=== PATIENT | female | born 1935 | race Caucasian/White ===

== ENCOUNTER 2020-09-23 20:49 | Emergency (ER) | payer MEDICARE, BC ==
[~2020-09-23] VITALS: Ht 152.4 cm; Wt 61.2 kg
[2020-09-23] MEDS ORDERED: ACET-2154 PO ×2 (21:03)
[2020-09-23] MEDS ORDERED: ATOR10TA PO (21:03)
[2020-09-23] MEDS ORDERED: MAGN400O6 PO (21:03)
[2020-09-23] MEDS ORDERED: CITA20TA16 PO (21:03)
[2020-09-23] MEDS ORDERED: MEMA10TA PO (21:03)
[2020-09-23] MEDS ORDERED: ENOX40DI SUBCUT (21:03)
[2020-09-23] MEDS ORDERED: QUET25TA PO (21:03)
[2020-09-23] MEDS ORDERED: ATEN25TA PO (21:03)
[2020-09-23] MEDS ORDERED: MULT-1119 PO (21:03)
[2020-09-23 21:28] LABS: MEAN CORPUSCULAR HEMOGLOBIN 29.4 uug (24.7-32.8); PLATELET COUNT (AUTO) 279 K/uL (179-408)
[2020-09-23 21:33] LABS: CARBON DIOXIDE 29 mmol/L (21-32); CHLORIDE 103 mmol/L (98-107); CREATININE 0.7 mg/dL (0.6-1.3); GLUCOSE 145 mg/dL (74-106); POTASSIUM 3.4 mmol/L (3.5-5.1); UREA NITROGEN, BLOOD 15 mg/dL (7-18)
--- NOTE | 2020-09-23 21:45 | NUR ---
Pt back to ER from Radiology.
[2020-09-23 22:28] LABS: *BILIRUBIN,URIN NEGATIVE (NEGATIVE); *BLOOD, URINE 2+ (NEGATIVE); *CLARITY,URINE CLOUDY (CLEAR); *COLOR,URINE YELLOW (YELLOW); *KETONES,URINE NEGATIVE (NEGATIVE); *UROBILINOGEN,URINE 0.2 E.U./dl (NORMAL); LEUKOCYTE ESTERASE ,URINE 3+ (NEGATIVE); NITRITE, URINE POSITIVE (NEGATIVE); PH,URINE 6.5 (5.0-8.0); UGLUCOSE TRACE (NEGATIVE)
[2020-09-23 22:37] LABS: BACTERIA,URINE MANY /HPF (NONE SEEN); RBC,URINE NONE SEEN /HPF (0-3); SQUAMOUS EPITHELIAL CELL,UR FEW /HPF (NONE SEEN); WBC,URINE TNTC /HPF (0-3)
[2020-09-23 22:38] LABS: CALCIUM OXALATE CRYSTALS,UR FEW /HPF (NONE SEEN)
[2020-09-23] MEDS ORDERED: CEFTRIAXONE 1 G in IV DEXTROSE 5% 50 ML IV ONE (22:45)
[2020-09-23] MEDS ORDERED: POTASSIUM BICARBONATE/CIT AC 25 MEQ TABLET.EFF PO ONE (22:45)
[2020-09-23] MEDS ORDERED: CEFTRIAXONE /D5W 50ML IVPB **ER PYXIS IV ONE (23:07)
[2020-09-23] MEDS ORDERED: POTASSIUM BICARBONATE/CIT AC 25 MEQ TABLET.EFF ONE (23:07)
[2020-09-24] MEDS ORDERED: OXYC-128 PO (00:27)
[2020-09-24] MEDS ORDERED: SULF1TAB48 PO (00:27)
--- NOTE | 2020-09-24 01:53 | NUR ---
Patient discharged to home in stable condition. Written and verbal after care instructions given. Patient verbalizes understanding of instructions. Stressed follow up or return to ER for worsening s/s. Patients daughter adamant about wanting to drive her mother back to her care facility so as to not wait for transportation services. VSS. Taken out via wheelchair. All belongings with patient.
[2020-09-24 02:03] VITALS: BP 122/72
== END 2020-09-24 01:00 ==
LOC: ER 20:52
DX: S22.080A Wedge compression fracture of T11-T12 vertebra, initial encounter for closed fracture (principal); W17.89XA Other fall from one level to another, initial encounter; Y92.099 Unspecified place in other non-institutional residence as the place of occurrence of the external cause; F03.90 Unspecified dementia, unspecified severity, without behavioral disturbance, psychotic disturbance, mood disturbance, and anxiety; Z85.3 Personal history of malignant neoplasm of breast; E78.00 Pure hypercholesterolemia, unspecified; Z79.899 Other long term (current) drug therapy; N39.0 Urinary tract infection, site not specified
CPT/HCPCS: 36415; 72072; 72100; 72170; 80048; 81001; 85025; 87086; 96365; 99284; J0696; A4663

== ENCOUNTER 2022-10-23 10:46 | Inpatient (IN) | payer MEDICARE, BC ==
[~2022-10-23] VITALS: Ht 152.4 cm; Wt 48.5 kg
[~2022-10-23 10:46] MED LIST: ACET-2154 PO; ATEN25TA PO; ATOR10TA PO; CITA20TA16 PO; ENOX40DI SUBCUT; MAGN400O6 PO; MEMA10TA PO; MULT-1119 PO; OXYC-128 PO; QUET25TA PO; SULF1TAB48 PO
[2022-10-23] MEDS ORDERED: OXYC-117 PO ×2 (11:21)
[2022-10-23] MEDS ORDERED: ACET-2030 PO (11:21)
[2022-10-23] MEDS ORDERED: TRAM50TA2 PO (11:21)
[2022-10-23] MEDS ORDERED: QUET25TA PO (11:21)
[2022-10-23 11:27] LABS: BASOPHILS % (AUTO) 0.3 % (0.0-2.0); HEMATOCRIT 33.7 % (31.2-41.9); HEMOGLOBIN 11.6 g/dL (10.9-14.3); LYMPHOCYTES # (AUTO) 1.6 K/uL (0.8-4.8); LYMPHOCYTES % (AUTO) 18.1 % (20.5-51.5); MEAN CORPUSCULAR HEMOGLOBIN 29.1 uug (24.7-32.8); MEAN CORPUSCULAR HGB CONC 34 g/dL (32.3-35.6); MEAN CORPUSCULAR VOLUME 84.7 fL (75.5-95.3); MONOCYTES # (AUTO) 0.5 K/uL (0.1-1.30); MONOCYTES % (AUTO) 5.6 % (0.0-11.0); NEUTROPHILS # (AUTO) 6.7 K/uL (1.8-8.9); PLATELET COUNT (AUTO) 219 K/uL (179-408); RED BLOOD CELL COUNT(AUTO) 3.98 MIL/uL (3.63-4.92); RED CELL DISTRIBUTION WIDTH 14.7 % (12.3-17.7); WHITE BLOOD COUNT (AUTO) 8.8 K/uL (3.8-11.8)
[2022-10-23 11:42] LABS: CALCIUM 7.8 mg/dL (8.5-10.1); CARBON DIOXIDE 28 mmol/L (21-32); CHLORIDE 101 mmol/L (98-107); CREATININE 0.6 mg/dL (0.6-1.3); GLUCOSE 148 mg/dL (74-106); SODIUM SERUM 139 mmol/L (136-145); UREA NITROGEN, BLOOD 11 mg/dL (7-18)
[2022-10-23 11:43] LABS: DIFFERENTIAL COMMENT 1
[2022-10-23] MEDS ORDERED: ACETAMINOPHEN 650 MG SUPP.RECT RC ONE ×2 (11:45)
[2022-10-23 11:54] LABS: ALANINE AMINOTRANSFERASE 14 U/L (14-59); ALBUMIN 2.6 g/dL (3.4-5.0); ALKALINE PHOSPHATASE 71 U/L (50-136); ASPARTATE AMINOTRANSFERASE 16 U/L (15-37); BILIRUBIN,DIRECT 0.2 mg/dL (0.0-0.2); BILIRUBIN,TOTAL 0.8 mg/dL (0.2-1.0); NT-PRO BNP 4118 pg/mL (0-125); TOTAL PROTEIN, SERUM 6.6 g/dL (6.4-8.2)
[2022-10-23] MEDS ORDERED: FUROSEMIDE 20 MG/2 ML VIAL ONE (14:59)
[2022-10-23] MEDS ORDERED: FUROSEMIDE 20 MG/2 ML VIAL IV ONE (15:00)
[2022-10-23 15:54] LABS: *BILIRUBIN,URIN NEGATIVE (NEGATIVE); *BLOOD, URINE 2+ (NEGATIVE); *COLOR,URINE YELLOW (YELLOW); *KETONES,URINE 1+ (NEGATIVE); *PROTEIN,URINE 2+ (NEGATIVE); *UROBILINOGEN,URINE 0.2 E.U./dl (NORMAL); LEUKOCYTE ESTERASE ,URINE 1+ (NEGATIVE); NITRITE, URINE NEGATIVE (NEGATIVE); UGLUCOSE NEGATIVE (NEGATIVE)
[2022-10-23 15:57] LABS: *CLARITY,URINE HAZY (CLEAR)
[2022-10-23 16:20] VITALS: O2SAT 96
[2022-10-23 16:26] LABS: BACTERIA,URINE MODERATE /HPF (NONE SEEN); SQUAMOUS EPITHELIAL CELL,UR FEW /HPF (NONE SEEN); WBC,URINE 20-50 /HPF (0-3)
[2022-10-23 17:45] VITALS: BP 119/48; TEMP 97.8; O2SAT 99
[2022-10-23] MEDS ORDERED: MAGNESIUM HYDROXIDE 30 ML LIQUID UDC PO PRN ×2 (19:15)
[2022-10-23] MEDS ORDERED: QUETIAPINE FUMARATE 25 MG TABLET PO PRN (19:15)
[2022-10-23] MEDS ORDERED: ZOLPIDEM 5 MG TABLET PO PRN (19:15)
[2022-10-23] MEDS ORDERED: REMEDY ESSENTIAL ZINC PASTE 113 GM TP PRN (19:15)
[2022-10-23] MEDS ORDERED: ONDANSETRON 4 MG/2 ML VIAL IV PRN (19:15)
[2022-10-23] MEDS ORDERED: CEFEPIME HCL 1 G VIAL ONE ×2 (20:27→20:44)
[2022-10-23] MEDS ORDERED: METRONIDAZOLE 500 MG TABLET ONE ×2 (20:28→20:29)
[2022-10-23] MEDS ORDERED: levoFLOXacin 500 MG TABLET ONE (20:28)
[2022-10-23] MEDS: ENOXAPARIN SODIUM 40 MG/0.4 ML DISP.SYRIN SQ SCH (20:47)
[2022-10-23] MEDS: CEFEPIME HCL 2 G in IV DEXTROSE 5% 100 ML IV SCH (21:06)
[2022-10-23 21:48] VITALS: BP 116/60; TEMP 98.2; O2SAT 99
[2022-10-23 22:00] VITALS: O2SAT 97
[2022-10-23] MEDS ORDERED: CEFEPIME HCL 2 G in IV DEXTROSE 5% 100 ML IV SCH (22:00)
[2022-10-24] MEDS: POTASSIUM CHLORIDE 50 ML IV SCH ×2 (00:04→01:10)
[2022-10-24 05:53] VITALS: BP 120/68; TEMP 98.2; O2SAT 99
[2022-10-24 08:00] VITALS: BP 138/69; TEMP 97; O2SAT 96
[2022-10-24 08:25] LABS: BASOPHILS % (AUTO) 0.3 % (0.0-2.0); EOSINOPHILS % (AUTO) 0.1 % (0.0-7.0); HEMOGLOBIN 12.2 g/dL (10.9-14.3); LYMPHOCYTES # (AUTO) 1.6 K/uL (0.8-4.8); LYMPHOCYTES % (AUTO) 28.9 % (20.5-51.5); MEAN CORPUSCULAR HEMOGLOBIN 29.2 uug (24.7-32.8); MEAN CORPUSCULAR HGB CONC 34 g/dL (32.3-35.6); MEAN CORPUSCULAR VOLUME 86.1 fL (75.5-95.3); MONOCYTES # (AUTO) 0.4 K/uL (0.1-1.30); MONOCYTES % (AUTO) 6.6 % (0.0-11.0); NEUTROPHILS # (AUTO) 3.6 K/uL (1.8-8.9); NEUTROPHILS % (AUTO) 64.1 % (38.5-71.5); PLATELET COUNT (AUTO) 225 K/uL (179-408); RED BLOOD CELL COUNT(AUTO) 4.18 MIL/uL (3.63-4.92); RED CELL DISTRIBUTION WIDTH 14.7 % (12.3-17.7); WHITE BLOOD COUNT (AUTO) 5.5 K/uL (3.8-11.8)
[2022-10-24 08:30] LABS: DIFFERENTIAL COMMENT 1
[2022-10-24 08:39] LABS: ALANINE AMINOTRANSFERASE 14 U/L (14-59); ALBUMIN 2.5 g/dL (3.4-5.0); ALKALINE PHOSPHATASE 71 U/L (50-136); ASPARTATE AMINOTRANSFERASE 28 U/L (15-37); BILIRUBIN,DIRECT 0.2 mg/dL (0.0-0.2); BILIRUBIN,TOTAL 0.6 mg/dL (0.2-1.0); CALCIUM 8.2 mg/dL (8.5-10.1); CARBON DIOXIDE 30 mmol/L (21-32); CHLORIDE 103 mmol/L (98-107); CHOLESTEROL 144 mg/dL (<200); CREATININE 0.7 mg/dL (0.6-1.3); GLUCOSE 93 mg/dL (74-106); HDL CHOLESTEROL 45 mg/dL (40-60); MAGNESIUM 2.1 mg/dL (1.8-2.4); PHOSPHOROUS 3.1 mg/dL (2.5-4.9); POTASSIUM 3.4 mmol/L (3.5-5.1); SODIUM SERUM 141 mmol/L (136-145); TOTAL PROTEIN, SERUM 6.4 g/dL (6.4-8.2); TRIGLYCERIDES 102 MG/DL (30-150); UREA NITROGEN, BLOOD 15 mg/dL (7-18)
[2022-10-24] MEDS ORDERED: POTASSIUM CHLORIDE 20 MEQ TAB.PRT.SR PO ONE (08:45)
[2022-10-24] MEDS: CEFEPIME HCL 2 G in IV DEXTROSE 5% 100 ML IV SCH ×2 (09:04→20:28)
[2022-10-24] MEDS: PANTOPRAZOLE SODIUM 40 MG VIAL IV SCH (10:26)
[2022-10-24] MEDS: ATENOLOL 25 MG TABLET PO SCH (10:27)
[2022-10-24] MEDS: DEXAMETHASONE SOD PHOSPHATE 10 MG INJ IV SCH (10:28)
[2022-10-24] MEDS: QUETIAPINE FUMARATE 25 MG TABLET PO SCH (10:28)
[2022-10-24] MEDS: CITALOPRAM 20 MG TABLET PO SCH (10:33)
[2022-10-24 10:42] LABS: THYROID STIMULATING HORMONE 1.007 mIU/mL (0.358-3.740)
[2022-10-24 12:00] VITALS: BP 112/61; TEMP 98.5; O2SAT 94
[2022-10-24 16:00] VITALS: BP 117/45; TEMP 98; O2SAT 98
[2022-10-24] MEDS ORDERED: REMDESIVIR (CHARGED) 200 MG in IV NORMAL SALINE 210 ML IV ONE (18:30)
[2022-10-24] MEDS: ATORVASTATIN 10 MG TABLET PO SCH (18:42)
[2022-10-24 20:00] VITALS: BP 97/53; TEMP 98.2; O2SAT 95
[2022-10-24] MEDS: ENOXAPARIN SODIUM 40 MG/0.4 ML DISP.SYRIN SQ SCH (20:50)
[2022-10-25] VITALS (7 sets, daily range): BP systolic 110–144; BP diastolic 47–74; TEMP 98–98.9; O2SAT 96–98
[2022-10-25 06:45] LABS: HEMATOCRIT 36.5 % (31.2-41.9); HEMOGLOBIN 12.3 g/dL (10.9-14.3); LYMPHOCYTES # (AUTO) 0.9 K/uL (0.8-4.8); LYMPHOCYTES % (AUTO) 27.5 % (20.5-51.5); MEAN CORPUSCULAR HEMOGLOBIN 28.8 uug (24.7-32.8); MEAN CORPUSCULAR HGB CONC 34 g/dL (32.3-35.6); MEAN CORPUSCULAR VOLUME 85.3 fL (75.5-95.3); MONOCYTES # (AUTO) 0.2 K/uL (0.1-1.30); MONOCYTES % (AUTO) 6.1 % (0.0-11.0); NEUTROPHILS # (AUTO) 2.1 K/uL (1.8-8.9); NEUTROPHILS % (AUTO) 66.4 % (38.5-71.5); PLATELET COUNT (AUTO) 270 K/uL (179-408); RED BLOOD CELL COUNT(AUTO) 4.28 MIL/uL (3.63-4.92); RED CELL DISTRIBUTION WIDTH 14.1 % (12.3-17.7); WHITE BLOOD COUNT (AUTO) 3.2 K/uL (3.8-11.8)
[2022-10-25 07:06] LABS: DIFFERENTIAL COMMENT 1
[2022-10-25 07:08] LABS: ALANINE AMINOTRANSFERASE 15 U/L (14-59); ALBUMIN 2.4 g/dL (3.4-5.0); ALKALINE PHOSPHATASE 68 U/L (50-136); ASPARTATE AMINOTRANSFERASE 19 U/L (15-37); BILIRUBIN,DIRECT 0.1 mg/dL (0.0-0.2); BILIRUBIN,TOTAL 0.4 mg/dL (0.2-1.0); CALCIUM 9.6 mg/dL (8.5-10.1); CARBON DIOXIDE 26 mmol/L (21-32); CHLORIDE 105 mmol/L (98-107); CREATININE 0.7 mg/dL (0.6-1.3); GLUCOSE 204 mg/dL (74-106); MAGNESIUM 2.2 mg/dL (1.8-2.4); PHOSPHOROUS 2.6 mg/dL (2.5-4.9); POTASSIUM 4.4 mmol/L (3.5-5.1); SODIUM SERUM 141 mmol/L (136-145); TOTAL PROTEIN, SERUM 6.6 g/dL (6.4-8.2); UREA NITROGEN, BLOOD 18 mg/dL (7-18)
[2022-10-25] MEDS: ATENOLOL 25 MG TABLET PO SCH (09:53)
[2022-10-25] MEDS: QUETIAPINE FUMARATE 25 MG TABLET PO SCH (09:54)
[2022-10-25] MEDS: CITALOPRAM 20 MG TABLET PO SCH (09:54)
[2022-10-25] MEDS: DEXAMETHASONE SOD PHOSPHATE 10 MG INJ IV SCH (09:56)
[2022-10-25] MEDS: CEFEPIME HCL 2 G in IV DEXTROSE 5% 100 ML IV SCH ×2 (09:56→21:44)
[2022-10-25] MEDS: PANTOPRAZOLE SODIUM 40 MG VIAL IV SCH (12:11)
[2022-10-25] MEDS: GLUCERNA SHAKE 237 ML CAN PO SCH (17:00)
[2022-10-25] MEDS: ATORVASTATIN 10 MG TABLET PO SCH (17:57)
[2022-10-25] MEDS: REMDESIVIR (CHARGED) 100 MG in IV NORMAL SALINE 100 ML IV SCH (17:59)
[2022-10-25] MEDS: ENOXAPARIN SODIUM 40 MG/0.4 ML DISP.SYRIN SQ SCH (22:16)
[2022-10-26] VITALS (8 sets, daily range): BP systolic 119–133; BP diastolic 55–62; TEMP 97.8–98.5; O2SAT 96–99
[2022-10-26] MEDS: PANTOPRAZOLE SODIUM 40 MG TABLET.DR PO SCH (06:30)
[2022-10-26 07:31] LABS: BASOPHILS % (AUTO) 0.1 % (0.0-2.0); HEMATOCRIT 36.6 % (31.2-41.9); HEMOGLOBIN 12.2 g/dL (10.9-14.3); LYMPHOCYTES # (AUTO) 1.1 K/uL (0.8-4.8); LYMPHOCYTES % (AUTO) 29.1 % (20.5-51.5); MEAN CORPUSCULAR HEMOGLOBIN 28.6 uug (24.7-32.8); MEAN CORPUSCULAR HGB CONC 33 g/dL (32.3-35.6); MEAN CORPUSCULAR VOLUME 85.5 fL (75.5-95.3); MONOCYTES # (AUTO) 0.3 K/uL (0.1-1.30); MONOCYTES % (AUTO) 8.9 % (0.0-11.0); NEUTROPHILS # (AUTO) 2.3 K/uL (1.8-8.9); NEUTROPHILS % (AUTO) 61.9 % (38.5-71.5); PLATELET COUNT (AUTO) 299 K/uL (179-408); RED BLOOD CELL COUNT(AUTO) 4.29 MIL/uL (3.63-4.92); RED CELL DISTRIBUTION WIDTH 14.5 % (12.3-17.7); WHITE BLOOD COUNT (AUTO) 3.6 K/uL (3.8-11.8)
[2022-10-26 07:43] LABS: DIFFERENTIAL COMMENT 1
[2022-10-26 08:33] LABS: ALBUMIN 2.6 g/dL (3.4-5.0); BILIRUBIN,DIRECT 0.1 mg/dL (0.0-0.2); BILIRUBIN,TOTAL 0.4 mg/dL (0.2-1.0); CALCIUM 8.9 mg/dL (8.5-10.1); CREATININE 0.7 mg/dL (0.6-1.3); POTASSIUM 4.1 mmol/L (3.5-5.1); TOTAL PROTEIN, SERUM 6.6 g/dL (6.4-8.2)
[2022-10-26] MEDS: CEFEPIME HCL 2 G in IV DEXTROSE 5% 100 ML IV SCH ×2 (08:54→21:05)
[2022-10-26] MEDS: GLUCERNA SHAKE 237 ML CAN PO SCH ×3 (08:54→17:30)
[2022-10-26] MEDS: DEXAMETHASONE SOD PHOSPHATE 10 MG INJ IV SCH (08:58)
[2022-10-26] MEDS: CITALOPRAM 20 MG TABLET PO SCH (08:58)
[2022-10-26] MEDS: QUETIAPINE FUMARATE 25 MG TABLET PO SCH (08:59)
[2022-10-26] MEDS: ATENOLOL 25 MG TABLET PO SCH (10:41)
[2022-10-26] MEDS: REMDESIVIR (CHARGED) 100 MG in IV NORMAL SALINE 100 ML IV SCH (18:20)
[2022-10-26] MEDS: ATORVASTATIN 10 MG TABLET PO SCH (18:21)
[2022-10-26] MEDS: ENOXAPARIN SODIUM 40 MG/0.4 ML DISP.SYRIN SQ SCH (21:11)
[2022-10-27] VITALS (7 sets, daily range): BP systolic 116–137; BP diastolic 44–65; TEMP 97.5–98.6; O2SAT 96–99
[2022-10-27] MEDS: PANTOPRAZOLE SODIUM 40 MG TABLET.DR PO SCH (06:14)
[2022-10-27] MEDS: ACETAMINOPHEN 325 MG TABLET PO PRN (06:36)
[2022-10-27 07:00] LABS: BASOPHILS % (AUTO) 0.1 % (0.0-2.0); HEMATOCRIT 36.9 % (31.2-41.9); HEMOGLOBIN 12.5 g/dL (10.9-14.3); LYMPHOCYTES # (AUTO) 1.8 K/uL (0.8-4.8); MEAN CORPUSCULAR HEMOGLOBIN 28.7 uug (24.7-32.8); MEAN CORPUSCULAR HGB CONC 34 g/dL (32.3-35.6); MEAN CORPUSCULAR VOLUME 84.6 fL (75.5-95.3); MONOCYTES # (AUTO) 0.5 K/uL (0.1-1.30); MONOCYTES % (AUTO) 8.2 % (0.0-11.0); NEUTROPHILS # (AUTO) 4.1 K/uL (1.8-8.9); NEUTROPHILS % (AUTO) 63.7 % (38.5-71.5); PLATELET COUNT (AUTO) 318 K/uL (179-408); RED BLOOD CELL COUNT(AUTO) 4.37 MIL/uL (3.63-4.92); WHITE BLOOD COUNT (AUTO) 6.5 K/uL (3.8-11.8)
[2022-10-27 07:05] LABS: DIFFERENTIAL COMMENT 1
[2022-10-27 07:10] LABS: ALBUMIN 2.6 g/dL (3.4-5.0); BILIRUBIN,DIRECT 0.1 mg/dL (0.0-0.2); BILIRUBIN,TOTAL 0.4 mg/dL (0.2-1.0); CALCIUM 8.9 mg/dL (8.5-10.1); CREATININE 0.7 mg/dL (0.6-1.3); TOTAL PROTEIN, SERUM 6.5 g/dL (6.4-8.2)
[2022-10-27 07:11] LABS: C-REACTIVE PROTEIN 4.4 mg/dL (0.0-0.9); MAGNESIUM 2.2 mg/dL (1.8-2.4); PHOSPHOROUS 2.2 mg/dL (2.5-4.9)
[2022-10-27] MEDS: CEFEPIME HCL 2 G in IV DEXTROSE 5% 100 ML IV SCH ×2 (07:42→21:00)
[2022-10-27] MEDS: GLUCERNA SHAKE 237 ML CAN PO SCH ×3 (08:09→17:11)
[2022-10-27] MEDS: DEXAMETHASONE SOD PHOSPHATE 10 MG INJ IV SCH (08:10)
[2022-10-27] MEDS: CITALOPRAM 20 MG TABLET PO SCH (08:10)
[2022-10-27] MEDS: QUETIAPINE FUMARATE 25 MG TABLET PO SCH (08:11)
[2022-10-27] MEDS: ATENOLOL 25 MG TABLET PO SCH (08:11)
[2022-10-27] MEDS ORDERED: NEUTRA PHOS PACKET PO ONE (15:30)
[2022-10-27] MEDS: ATORVASTATIN 10 MG TABLET PO SCH (17:11)
[2022-10-27] MEDS: REMDESIVIR (CHARGED) 100 MG in IV NORMAL SALINE 100 ML IV SCH ×2 (17:21→18:38)
[2022-10-27] MEDS: ENOXAPARIN SODIUM 40 MG/0.4 ML DISP.SYRIN SQ SCH (21:21)
[2022-10-28] MEDS: PANTOPRAZOLE SODIUM 40 MG TABLET.DR PO SCH (07:01)
[2022-10-28 07:11] LABS: HEMATOCRIT 37.6 % (31.2-41.9); HEMOGLOBIN 12.6 g/dL (10.9-14.3); LYMPHOCYTES # (AUTO) 1.8 K/uL (0.8-4.8); MEAN CORPUSCULAR HEMOGLOBIN 28.3 uug (24.7-32.8); MEAN CORPUSCULAR HGB CONC 34 g/dL (32.3-35.6); MEAN CORPUSCULAR VOLUME 84.4 fL (75.5-95.3); MONOCYTES # (AUTO) 0.3 K/uL (0.1-1.30); MONOCYTES % (AUTO) 6.8 % (0.0-11.0); NEUTROPHILS # (AUTO) 2.9 K/uL (1.8-8.9); NEUTROPHILS % (AUTO) 57.2 % (38.5-71.5); PLATELET COUNT (AUTO) 278 K/uL (179-408); RED BLOOD CELL COUNT(AUTO) 4.45 MIL/uL (3.63-4.92); RED CELL DISTRIBUTION WIDTH 14.5 % (12.3-17.7)
[2022-10-28 07:12] VITALS: BP 128/50; TEMP 97.8; O2SAT 96
[2022-10-28 07:21] LABS: ALANINE AMINOTRANSFERASE 18 U/L (14-59); ALBUMIN 2.6 g/dL (3.4-5.0); ALKALINE PHOSPHATASE 70 U/L (50-136); ASPARTATE AMINOTRANSFERASE 20 U/L (15-37); BILIRUBIN,DIRECT 0.1 mg/dL (0.0-0.2); BILIRUBIN,TOTAL 0.4 mg/dL (0.2-1.0); CALCIUM 8.7 mg/dL (8.5-10.1); CARBON DIOXIDE 28 mmol/L (21-32); CHLORIDE 105 mmol/L (98-107); CREATININE 0.7 mg/dL (0.6-1.3); GLUCOSE 316 mg/dL (74-106); MAGNESIUM 2.2 mg/dL (1.8-2.4); PHOSPHOROUS 2.2 mg/dL (2.5-4.9); POTASSIUM 3.8 mmol/L (3.5-5.1); SODIUM SERUM 142 mmol/L (136-145); TOTAL PROTEIN, SERUM 6.3 g/dL (6.4-8.2); UREA NITROGEN, BLOOD 23 mg/dL (7-18)
[2022-10-28 07:27] LABS: DIFFERENTIAL COMMENT 1
[2022-10-28] MEDS: ATENOLOL 25 MG TABLET PO SCH (09:00)
[2022-10-28] MEDS: CEFEPIME HCL 2 G in IV DEXTROSE 5% 100 ML IV SCH ×2 (10:11→20:09)
[2022-10-28] MEDS: DEXAMETHASONE SOD PHOSPHATE 10 MG INJ IV SCH (10:13)
[2022-10-28] MEDS: CITALOPRAM 20 MG TABLET PO SCH (10:13)
[2022-10-28] MEDS: QUETIAPINE FUMARATE 25 MG TABLET PO SCH (10:14)
[2022-10-28] MEDS: GLUCERNA SHAKE 237 ML CAN PO SCH ×3 (10:36→17:00)
[2022-10-28 11:33] VITALS: BP 124/56; TEMP 98.2; O2SAT 96
[2022-10-28 16:00] VITALS: BP 109/42; TEMP 98.6; O2SAT 95
[2022-10-28] MEDS ORDERED: NEUTRA PHOS PACKET PO ONE (16:30)
[2022-10-28] MEDS: ATORVASTATIN 10 MG TABLET PO SCH (18:02)
[2022-10-28] MEDS: REMDESIVIR (CHARGED) 100 MG in IV NORMAL SALINE 100 ML IV SCH (18:03)
[2022-10-28 20:00] VITALS: BP 114/61; TEMP 97.5; O2SAT 97
[2022-10-28] MEDS: ENOXAPARIN SODIUM 40 MG/0.4 ML DISP.SYRIN SQ SCH (21:36)
[2022-10-29] VITALS (7 sets, daily range): BP systolic 125–139; BP diastolic 44–64; TEMP 97–98.7; O2SAT 96–100
[2022-10-29] MEDS: PANTOPRAZOLE SODIUM 40 MG TABLET.DR PO SCH (07:00)
[2022-10-29 08:26] LABS: BASOPHILS % (AUTO) 0.1 % (0.0-2.0); HEMATOCRIT 36.8 % (31.2-41.9); HEMOGLOBIN 12.3 g/dL (10.9-14.3); LYMPHOCYTES % (AUTO) 37.3 % (20.5-51.5); MEAN CORPUSCULAR HEMOGLOBIN 28.5 uug (24.7-32.8); MEAN CORPUSCULAR HGB CONC 33 g/dL (32.3-35.6); MEAN CORPUSCULAR VOLUME 85.4 fL (75.5-95.3); MONOCYTES # (AUTO) 0.4 K/uL (0.1-1.30); NEUTROPHILS % (AUTO) 55.6 % (38.5-71.5); PLATELET COUNT (AUTO) 270 K/uL (179-408); RED BLOOD CELL COUNT(AUTO) 4.31 MIL/uL (3.63-4.92); RED CELL DISTRIBUTION WIDTH 14.3 % (12.3-17.7); WHITE BLOOD COUNT (AUTO) 5.4 K/uL (3.8-11.8)
[2022-10-29 08:35] LABS: DIFFERENTIAL COMMENT 1
[2022-10-29] MEDS: CITALOPRAM 20 MG TABLET PO SCH (08:39)
[2022-10-29] MEDS: CEFEPIME HCL 2 G in IV DEXTROSE 5% 100 ML IV SCH (08:39)
[2022-10-29] MEDS: DEXAMETHASONE SOD PHOSPHATE 10 MG INJ IV SCH (08:39)
[2022-10-29] MEDS: QUETIAPINE FUMARATE 25 MG TABLET PO SCH (08:40)
[2022-10-29] MEDS: ATENOLOL 25 MG TABLET PO SCH (09:00)
[2022-10-29 09:19] LABS: ALANINE AMINOTRANSFERASE 20 U/L (14-59); ALBUMIN 2.6 g/dL (3.4-5.0); ALKALINE PHOSPHATASE 65 U/L (50-136); ASPARTATE AMINOTRANSFERASE 15 U/L (15-37); BILIRUBIN,DIRECT 0.2 mg/dL (0.0-0.2); BILIRUBIN,TOTAL 0.6 mg/dL (0.2-1.0); CALCIUM 8.5 mg/dL (8.5-10.1); CARBON DIOXIDE 27 mmol/L (21-32); CHLORIDE 104 mmol/L (98-107); CREATININE 0.7 mg/dL (0.6-1.3); FERRITIN 841 ng/mL (8-252); GLUCOSE 287 mg/dL (74-106); LACTATE DEHYDROGENASE 168 U/L (81-234); POTASSIUM 3.7 mmol/L (3.5-5.1); SODIUM SERUM 141 mmol/L (136-145); TOTAL PROTEIN, SERUM 6.2 g/dL (6.4-8.2); UREA NITROGEN, BLOOD 20 mg/dL (7-18)
[2022-10-29] MEDS: GLUCERNA SHAKE 237 ML CAN PO SCH ×2 (13:52→17:15)
[2022-10-29 15:17] LABS: C-REACTIVE PROTEIN 3.5 mg/dL (0.0-0.9); MAGNESIUM 2.5 mg/dL (1.8-2.4); PHOSPHOROUS 2.6 mg/dL (2.5-4.9)
[2022-10-29] MEDS: ATORVASTATIN 10 MG TABLET PO SCH (17:27)
[2022-10-29] MEDS ORDERED: REMEDY ESSENTIAL ZINC PASTE 113 GM TOP SCH (21:00)
[2022-10-29] MEDS: ENOXAPARIN SODIUM 40 MG/0.4 ML DISP.SYRIN SQ SCH (22:01)
[2022-10-29] MEDS: ACETAMINOPHEN 325 MG TABLET PO PRN (22:20)
[2022-10-30] VITALS (7 sets, daily range): BP systolic 109–132; BP diastolic 46–57; TEMP 97.2–98; O2SAT 97–98
[2022-10-30] MEDS: PANTOPRAZOLE SODIUM 40 MG TABLET.DR PO SCH (06:37)
[2022-10-30] MEDS: ATENOLOL 25 MG TABLET PO SCH (09:04)
[2022-10-30] MEDS: CITALOPRAM 20 MG TABLET PO SCH (09:04)
[2022-10-30] MEDS: DEXAMETHASONE SOD PHOSPHATE 10 MG INJ IV SCH (09:05)
[2022-10-30] MEDS: QUETIAPINE FUMARATE 25 MG TABLET PO SCH (09:05)
[2022-10-30] MEDS: GLUCERNA SHAKE 237 ML CAN PO SCH (09:07)
[2022-10-30] MEDS ORDERED: DEXA6TAB6 PO (10:30)
== END 2022-10-30 16:55 | DRG 177 ==
LOC: ER 10:46 → TELE3 17:11 → MEDSURG3 10-30 11:21
PROVIDERS: ADMIT Nurse Practitioner Acute Care; ATTEND Nurse Practitioner Acute Care
PROC: XW033E5 Introduction of Remdesivir Anti-infective into Peripheral Vein, Percutaneous Approach, New Technology Group 5 (ICD-10-PCS; principal; 2022-10-24)
DX: U07.1 COVID-19 (principal); G93.41 Metabolic encephalopathy; J96.01 Acute respiratory failure with hypoxia; J15.9 Unspecified bacterial pneumonia; J12.82 Pneumonia due to coronavirus disease 2019; N39.0 Urinary tract infection, site not specified; J98.11 Atelectasis; I50.30 Unspecified diastolic (congestive) heart failure; Z66 Do not resuscitate; E87.6 Hypokalemia; F03.90 Unspecified dementia, unspecified severity, without behavioral disturbance, psychotic disturbance, mood disturbance, and anxiety; Z85.3 Personal history of malignant neoplasm of breast; B96.20 Unspecified Escherichia coli [E. coli] as the cause of diseases classified elsewhere; E11.9 Type 2 diabetes mellitus without complications; I11.0 Hypertensive heart disease with heart failure; R53.1 Weakness; Z79.899 Other long term (current) drug therapy; E78.00 Pure hypercholesterolemia, unspecified; I25.10 Atherosclerotic heart disease of native coronary artery without angina pectoris
CPT/HCPCS: 36415; 71045; 83605; 83615; 83735; 84100; 84443; 84484; 85025; 85610; 85730; 86140; 87040; 93005; 93307; A4663; A6213; C9113; G0378; J0248; J0692; J1100; J1650; J1940; J3480